=== PATIENT | female | born 1975 | race Caucasian/White ===

== ENCOUNTER 2021-05-13 08:28 | Emergency (ER) | payer BC, SELFPAY ==
[2021-05-13 08:51] VITALS: BP 142/90; PULSE 75; RESP 16; TEMP 36.8; O2SAT 94; BMI 42.0
--- NOTE | 2021-05-13 09:04 | ED_ITS ---
HPI - Eye Problem General: Chief complaint: Eye Problems Stated complaint: Something in R eye Time Seen by Provider: 05/13/21 08:52 Source: patient Mode of arrival: ambulatory Limitations: no limitations History of Present Illness: 45-year-old female presents to the ER today for right eye irritation and pain x24 hours. Patient reports she was cleaning a stall yesterday when sawdust shavings blew up into her eye. Patient reports she flushed her eye at home multiple times however she has had continued irritation and pain. She reports she feels like her right eye is swollen. It has constant clear drainage. Patient denies changes in vision other than due to the eye being irritated. Patient denies any headache, fever, chills, chest pain, shortness of breath, nausea, vomiting, diarrhea, constipation. Onset (ago): hour(s) (24) Location: right eye Eye Symptoms: burning, redness, foreign body sensation, discharge and photophobia Mechanism: other (Working in a stall) Treatments Prior to Arrival: irrigated eye and OTC eye drops Review of Systems General: Reports: 10 or more systems reviewed and unremarkable except in HPI and below [facility] ED Female Reproductive History: Date of last menstrual period: 05/07/20 Physical Exam Const: COMMON NORMALS: average body habitus, patient oriented x3, no limitations, healthy appearing and alert; apparent distress (Patient appears uncomfortable) HENMT: COMMON NORMALS: normocephalic and atraumatic HEAD & SCALP: normocephalic and atraumatic Eye: COMMON NORMALS: Equal, round and reactive pupils present and EOMs intact bilaterally CONJUNCTIVA: Yes conjunctival abnormal positive right conjunctival injection diffuse and discharge other (Clear) CORNEA: Yes fluorescein used (Fluorescein stain notes corneal abrasion at the 11 o'clock position) PUPIL: Yes Equal, round and reactive pupils present Resp: EFFORT & INSPECTION: Yes able to speak in complete sentences Cardio: COMMON NORMALS: regular rate and regular rhythm RATE: regular rate RHYTHM: regular rhythm Extremity: COMMON NORMALS: normal to inspection and full ROM Neuro: COMMON NORMALS: patient oriented x3 SENSORIUM/ORIENTATION: Yes alert Psych: COMMON NORMALS: mental status grossly normal, Normal thought process p resent and cooperative THOUGHT PROCESS: Normal thought process present Skin: COMMON NORMALS: no rashes or lesions noted GENERAL SKIN EXAM: no rashes or lesions noted Course ED course: Patient presents to the ER with a foreign body sensation to the right eye. 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 Patient tried flushing it at home in addition to using [id number] eyedrops with no improvement. We will fluorescein stain in the right eye for exam. Vital Signs: Vital signs: Vital Signs Temperature 98.3 F 05/13/21 08:51 Pulse Rate 75 05/13/21 08:51 Respiratory Rate 16 05/13/21 08:51 Blood Pressure 142/90 05/13/21 08:51 Pulse Oximetry 94 05/13/21 08:51 MDM - Eye Problem Medical Decision Making 45-year-old female presents to the ER today for right eye pain x24 hours. Patient reports this started after she was cleaning a stall and sawdust blew in her right eye. Patient tried flushing the eye at home in addition to using [id number] eyedrops with no improvement. Patient reports clear drainage and constant pain. Light makes the patient's right eye very sensitive. Tetracaine drops were applied to patient's right eye and fluorescein staining was performed. There appears to be a corneal abrasion at the 11 o'clock position of the right cornea. No obvious foreign body is noted. We will treat with gentamicin drops at this time. Recommended patient do this every hour until improved and then every 4 hours. If no improvement 2 to 3 days follow-up with cottage supervisor. Apply cool rag for comfort. Avoid bright light. Return to the ER with new or worsening symptoms. Patient verbalized understanding and is in agreement with the treatment plan. Critical Care Time Critical Care Time: Critical Care Time: No Discharge Plan Discharge Patient Disposition: Home Clinical Impression: Corneal abrasion Condition: Stable Prescriptions: New gentamicin 0.3 % drops 2 drp ophthalmic (eye) Q4H 7 Days Qty: 5 0RF Discharge Orders: Discharge ED (Routine); Ordered 05/13/21 Ordered By: Hailee Ramirez Discharge Diet: Usual diet Discharge Activity: Resume usual activity Patient Instructions: Corneal Abrasion (DC), Opioid Safety Activity Restrictions/Additional Instructions: Use gentamicin drops as prescribed. Avoid light until pain improves. Avoid touching the eye. Cool compresses recommended. Ibuprofen recommended for pain. If no improvement in 2 to 3 days follow-up with cottage supervisor. Return to the ER with new or worsening symptoms. Coding Level of Care Code ED Covering Machine Operator Helper for Rosario Macedo
[2021-05-13 09:21] VITALS: BP 155/72; PULSE 72; RESP 18; TEMP 36.6
== END 2021-05-13 09:22 | disposition home or self-care (01) ==
PROVIDERS: Emergency Provider Physician Assistant
DX: S05.01XA Injury of conjunctiva and corneal abrasion without foreign body, right eye, initial encounter (principal); X58.XXXA Exposure to other specified factors, initial encounter
CPT/HCPCS: 99282

== ENCOUNTER → 2022-09-09 16:33 | Outpatient (BNVA) | payer BC, SELFPAY | PROVIDERS: Visit Provider Nurse Practitioner Family | DX: M25.561 Pain in right knee (principal) | CPT/HCPCS: 73562 ==

== ENCOUNTER 2023-08-05 10:51 | Outpatient (CLI) | payer OTHER, SELFPAY ==
--- NOTE | 2023-08-05 15:37 | P.DIET_ITS ---
Reason for Visit: 12994 E11.9 Person Interviewed: Patient Medical History, Labs and Background: Pt mentioned she is in middle of menopause. Height: 5 ft 2 in Weight: 219 lb BMI: 40 kg/m2 UBW: Mya shared she has lost 25lbs. IBW: Her goal for now is 200lbs. Concerns and Goals: Mya would like to lose some weight and lower her A1c. Sleep Hygiene: Due to menopause, Mya has issues at night, often waking between 2-4am and unable to sleep. Physical Activity: She is active outside with her horses as well as riding an elliptical 3-5x/week for 15 minutes. GI Symptoms: Constipation and Other (She has some bleeding from hemorrhoids and can be gassy during her period.) Feeding Issues: None Other Feeding Issues: Mya said she is often insatiably hungry at night. Food Allergies and Sensitivities: NKA, but she has a dislike for beans. 24 Hour Recall: Breakfast Time: 8ish apple and yogurt Snack Time: Lunch Time: noonish salads or hummus +veggies Snack Time: Dinner Time: 7pmish protein + 2 veggies Snack Time: before bed craves sweets! Eating Out: They don't typically eat out. However they are getting ready to go on a cruise. Soda vs Milk vs Water: Mya likes 1 cup coffee with cream and sugar, is a social drinker, maybe 1 cup milk, and probably 6-8 glasses water. Additional Comments: She likes the Mediterranean way of eating Recommendations: Assessment: Mya was humiliated by a doctor who told her he would not operate on her because her A1c was 9. Even when it was down to 7.3 he would not. Up until then she has been carefree re: her DM, but after that decided to try and do something so this wouldn't happen again. Nutrition diagnosis: Altered nutrition related labs r/t DM2 AEB high HbA1c and BMI. Intervention: Sleep will most likely continue to be an issue, but we discussed how hormones are messed up by lack of sleep and can increase craving for simple carbs. Menopause will also wreak havoc on cravings and she is aware. 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 We discussed how that could set her up for failure in the evening when she is genuinely hungry and can then fall prey to overeating on things like sweets and simply not make the choices she would like to make. Part of that will be creating the right environment at home, i.e., having her pantry, fridge and freezer full of foods she will want to choose. Another part of that is meal prepping so that these foods are readily av ailable/ accessible. Her outdoor activities and exercise is excellent and I encouraged her to keep it up, reminding her of the physical and mental and emotional benefits. We talked about the Mediterranean style of eating and she and her like/follow it, but also eat a lot of beef since they raise it. To help her with managing carbs in her meals we talked through handouts the encouraged reading labels and eating 3 meals/ 1 snack with 30-45 carbs/meal and 15-30 carbs/snack, as well as what constitutes a carb serving. In terms of her question as to what to do when she is insatiably hungry, I counseled that I would try something more substantial at breakfast and lunch so that she wouldn't get to the end of her day and be so hungry and therefore be set up for poor choices. Monitoring and evaluation: The take home sheet with the simple goal has my contact information so that she can phone or email with f/u concerns or questions. Coding Level of Care Code Nutrition/Individ/Init 60 min Time Spent (min) 60
== END 2023-08-05 10:52 | disposition home or self-care (01) ==
LOC: DIET 10:52
PROVIDERS: PCP Nurse Practitioner Family; Visit Provider Internal Medicine
DX: E11.9 Type 2 diabetes mellitus without complications (principal)
CPT/HCPCS: 80053; 80061; 82044; 82306; 83036

== ENCOUNTER → 2023-11-17 10:04 | Outpatient (BNVA) | payer OTHER, SELFPAY | PROVIDERS: PCP Nurse Practitioner Family; Visit Provider Internal Medicine | DX: E55.9 Vitamin D deficiency, unspecified (principal); E11.9 Type 2 diabetes mellitus without complications; E11.69 Type 2 diabetes mellitus with other specified complication; E78.2 Mixed hyperlipidemia | CPT/HCPCS: 36415; 80053; 80061; 82044; 82306; 83036 ==

== ENCOUNTER 2024-02-28 08:24 | Outpatient (CLI) | payer OTHER, SELFPAY ==
[2024-02-28 09:08] LABS: Estmated Average Glucose 186; Hemoglobin A1C 8.1 % (4.0-6.0)
[2024-02-28 09:10] LABS: Creatinine Urine, Random 82 mg/dL (28-217); Microalbum Creatinine Ratio Ur 12 mg/dL (0-20); Microalbumin Random Urine 1 ug/dL (0-20)
[2024-02-28 09:29] LABS: 25 Hydroxy Vitamin D 45 ng/mL (30-100); Alanine Aminotransferase 17 U/L (0-33); Albumin Level 4.2 g/dL (3.5-5.2); Alkaline Phosphatase 60 U/L (35-105); Aspartate Amino Transferase 17 U/L (0-32); Blood Urea Nitrogen 12 mg/dL (6-20); Calcium 9.4 mg/dL (8.5-10.5); Carbon Dioxide 25 mmol/L (22-29); Chloride 102 mmol/L (98-107); Chol HDL Ratio 3.72 mg/dL (0.0-4.40); Cholesterol 175 mg/dL (0-200); Globulin 3.5 g/dL (1.3-4.6); Glomerular Filtration Rate 130.6 mL/min (90-130); Glucose 173 mg/dL (65-115); HDL Cholesterol 47 mg/dL (60-100); LDL Cholesterol Calculated 90 mg/dL (50-129); LDL HDL Ratio 1.91 RATIO (0.00-3.22); Osmolality Calculated 290 mOsm/kg (285-295); Sodium 138 mmol/L (136-145); Total Bilirubin 0.5 mg/dL (0.15-1.2); Total Protein 7.7 g/dL (6.6-8.7); Triglycerides 190 mg/dL (0-150)
== END 2024-02-28 08:25 | disposition home or self-care (01) ==
LOC: LAB 08:26
PROVIDERS: PCP Nurse Practitioner Family; Visit Provider Internal Medicine
DX: E55.9 Vitamin D deficiency, unspecified (principal); E11.9 Type 2 diabetes mellitus without complications; E11.69 Type 2 diabetes mellitus with other specified complication; E78.2 Mixed hyperlipidemia
CPT/HCPCS: 80053; 80061; 82044; 82306; 83036

== ENCOUNTER 2024-03-01 08:44 | Outpatient (CLI) | payer OTHER, SELFPAY | END 2024-03-01 08:45 | disposition home or self-care (01) | LOC: RAD 08:47 | PROVIDERS: PCP Nurse Practitioner Family; Visit Provider Nurse Practitioner Family | DX: Z12.31 Encounter for screening mammogram for malignant neoplasm of breast (principal); R92.323 Mammographic fibroglandular density, bilateral breasts; N63.11 Unspecified lump in the right breast, upper outer quadrant; R92.1 Mammographic calcification found on diagnostic imaging of breast | CPT/HCPCS: 77063; 77067 ==

== ENCOUNTER 2024-04-12 08:56 | Outpatient (CLI) | payer OTHER, SELFPAY ==
--- NOTE | 2024-04-12 09:09 | MM_ITS ---
WS: [id number] ADDITIONAL VIEWS RIGHT MAMMOGRAM WITH DIGITAL BREAST TOMOSYNTHESIS. RIGHT BREAST ULTRASOUND HISTORY: ABNORMAL MAMMO COMPARISON: 03/01/2024 RIGHT MAMMOGRAM: Spot compression views and true ML with digital breast tomosynthesis and SM. Breast composition: There are scattered areas of fibroglandular density. Mass is reidentified in the lateral RIGHT breast posteriorly near 10:00. Mass measures 6 x 15 x 7 mm and may be a lymph node or 2 lymph nodes adjacent to each other. There is no distortion or calcificat ion. RIGHT BREAST ULTRASOUND 2-D and color Doppler imaging submitted. Lymph node noted 10:00, 7 cm from the nipple measures 1.5 cm. This does correspond to the mammographi c abnormality. There is an additional lymph node also noted more superiorly which corresponds to the mammographic abnormality also. MM/MM diag RT tomosynthesis [id number] IMPRESSION: BI-RADS: 2 - Benign. FOLLOW UP: 1 Year Follow-up
== END 2024-04-12 08:57 | disposition home or self-care (01) ==
LOC: RAD 09:00
PROVIDERS: PCP Nurse Practitioner Family; Visit Provider Nurse Practitioner Family
DX: R92.8 Other abnormal and inconclusive findings on diagnostic imaging of breast (principal); R92.331 Mammographic heterogeneous density, right breast; N63.11 Unspecified lump in the right breast, upper outer quadrant; R59.0 Localized enlarged lymph nodes
CPT/HCPCS: 76642; 77061; G0279

== ENCOUNTER → 2024-06-07 09:00 | Outpatient (BNVA) | payer OTHER, SELFPAY | PROVIDERS: PCP Nurse Practitioner Family; Visit Provider Internal Medicine | DX: E11.9 Type 2 diabetes mellitus without complications (principal); E55.9 Vitamin D deficiency, unspecified; E11.69 Type 2 diabetes mellitus with other specified complication; E78.2 Mixed hyperlipidemia | CPT/HCPCS: 36415; 80053; 80061; 82044; 82306; 83036 ==

== ENCOUNTER 2024-11-26 07:58 | Outpatient (CLI) | payer OTHER, SELFPAY ==
[2024-11-26 08:49] LABS: Estmated Average Glucose 174; Hemoglobin A1C 7.7 % (4.0-6.0)
[2024-11-26 08:52] LABS: Creatinine Urine, Random 109 mg/dL (28-217); Microalbum Creatinine Ratio Ur 18 mg/dL (0-20)
[2024-11-26 08:55] LABS: Alanine Aminotransferase 14 U/L (0-33); Albumin Level 4.3 g/dL (3.5-5.2); Alkaline Phosphatase 56 U/L (35-105); Anion Gap 15.0 (5-19); Aspartate Amino Transferase 20 U/L (0-32); Blood Urea Nitrogen 11 mg/dL (6-20); Calcium 9.0 mg/dL (8.5-10.5); Carbon Dioxide 25 mmol/L (22-29); Chloride 103 mmol/L (98-107); Cholesterol 146 mg/dL (0-200); Globulin 3.0 g/dL (1.3-4.6); Glucose 151 mg/dL (65-115); HDL Cholesterol 57 mg/dL (60-100); Osmolality Calculated 290 mOsm/kg (285-295); Potassium 4.0 mmol/L (3.5-5.1); Sodium 139 mmol/L (136-145); Total Protein 7.3 g/dL (6.6-8.7); Triglycerides 201 mg/dL (0-150)
== END 2024-11-26 07:59 | disposition home or self-care (01) ==
LOC: LAB 07:59
PROVIDERS: PCP Nurse Practitioner Family; Visit Provider Internal Medicine
DX: E55.9 Vitamin D deficiency, unspecified (principal); E11.69 Type 2 diabetes mellitus with other specified complication; E78.2 Mixed hyperlipidemia
CPT/HCPCS: 36415; 80053; 80061; 82044; 83036

== ENCOUNTER 2025-02-21 09:04 | Outpatient (CLI) | payer OTHER, SELFPAY ==
[2025-02-21 11:22] LABS: Estmated Average Glucose 183; Hemoglobin A1C 8.0 % (4.0-6.0)
[2025-02-21 11:33] LABS: Creatinine Urine, Random 52 mg/dL (28-217); Microalbum Creatinine Ratio Ur 19 mg/dL (0-20)
[2025-02-21 11:34] LABS: Alanine Aminotransferase 16 U/L (0-33); Albumin Level 4.8 g/dL (3.5-5.2); Alkaline Phosphatase 57 U/L (35-105); Anion Gap 15.3 (5-19); Aspartate Amino Transferase 19 U/L (0-32); Blood Urea Nitrogen 16 mg/dL (6-20); Calcium 9.8 mg/dL (8.5-10.5); Carbon Dioxide 27 mmol/L (22-29); Chloride 100 mmol/L (98-107); Cholesterol 169 mg/dL (0-200); Globulin 3.0 g/dL (1.3-4.6); Glucose 146 mg/dL (65-115); HDL Cholesterol 56 mg/dL (60-100); Osmolality Calculated 290 mOsm/kg (285-295); Potassium 4.3 mmol/L (3.5-5.1); Sodium 138 mmol/L (136-145); Total Protein 7.8 g/dL (6.6-8.7); Triglycerides 214 mg/dL (0-150)
== END 2025-02-21 09:05 | disposition home or self-care (01) ==
PROVIDERS: PCP Nurse Practitioner Family; Visit Provider Internal Medicine
DX: E11.9 Type 2 diabetes mellitus without complications (principal)
CPT/HCPCS: 36415; 80053; 80061; 82044; 83036